=== PATIENT | female | born 1985 | race Caucasian/White ===

== ENCOUNTER 2016-08-26 20:34 | Observation (INO) | payer BC ==
[~2016-08-26] VITALS: Ht 165.1 cm; Wt 86.5 kg
[2016-08-26 21:23] LABS: MCV 88.1 FL (83-99); MEAN PLAT.VOLUME 9.4 uM^3 (9.5-12.4); PLATELET COUNT 323 K/uL (156-360); RBC DIS.WIDTH-CV 13.1 % (11.8-14.6); RBC DIS.WIDTH-SD 41.5 % (39-53); RED BLOOD COUNT 4.54 M/uL (3.80-5.20)
[2016-08-26 21:31] LABS: CHLORIDE 109 mEq/L (99-109); POTASSIUM 3.1 mEq/L (3.7-5.4); SODIUM 139 mEq/L (136-147)
[2016-08-26 21:33] LABS: GLUCOSE 166 mg/dL (70-99)
[2016-08-26 21:35] LABS: D-DIMER ELISA 0.33 mg/L FEU (< 0.57)
[2016-08-26 21:35] LABS: ANION GAP 13 MEQ/L (2-14)
[2016-08-26 21:37] LABS: GFR ESTIMATE (CALCULATED) > 59 mL/min/
[2016-08-26 21:38] LABS: UREA NITROGEN (BUN) 10 mg/dL (9-23)
[2016-08-26 21:43] LABS: TROP-I INTERPRETATION NEGATIVE; TROPONIN-I < 0.01 ng/mL (0.0-0.30)
[2016-08-26 21:43] LABS: TOTAL BILIRUBIN 0.3 mg/dL (0.0-1.0)
[2016-08-26 21:44] LABS: ALKALINE PHOSPHATASE 87 IU/L (3-129)
[2016-08-26 21:45] LABS: QUANTITATIVE HCG < 4.0 MIU/ML
[2016-08-26 21:47] LABS: DIRECT BILIRUBIN 0.1 mg/dL (0.0-0.3)
[2016-08-26] MEDS ORDERED: AMPHETAMINE SAL20 MG PO (21:53)
[2016-08-26] MEDS ORDERED: METHIMAZOLE10 MG PO (21:53)
[2016-08-26] MEDS ORDERED: B-122500 MC1 SL (21:53)
[2016-08-26] MEDS ORDERED: VITAMIN D22000 UNIT PO (21:54)
[2016-08-27 02:35] VITALS: BP 112/58
[2016-08-27 04:50] LABS: TROP-I INTERPRETATION NEGATIVE; TROPONIN-I < 0.01 ng/mL (0.0-0.30)
[2016-08-27 08:16] VITALS: BP 99/62
[2016-08-27 08:44] LABS: ADD MIUA? NO; BILIRUBIN NEGATIVE; BLOOD NEGATIVE; COLOR YELLOW ((YELLOW)); GLUCOSE (STRIP) NEGATIVE; KETONES NEGATIVE; LEUKOCYTES NEGATIVE; NITRITE NEGATIVE; PROTEIN (STRIP) NEGATIVE; SPECIFIC GRAVITY 1.013 (1.000-1.030); UROBILINOGEN 0.2 MG/DL (0.2-1.0)
[2016-08-27 09:36] LABS: BARBITUATES QUANT VALUE 0 NG/ML; BENZODIAZEPINES QUANT VALUE 0 NG/ML; BENZODIAZEPINES, URINE SCREEN Negative (200 ng/mL); MARIJUANA QUANT VALUE 0 NG/ML; OPIATES QUANTITATIVE VALUE 0 NG/ML; PHENCYCLIDINE QUANT VALUE 0 NG/ML
[2016-08-27 10:09] VITALS: BP 111/63
[2016-08-27 10:34] LABS: TROP-I INTERPRETATION NEGATIVE; TROPONIN-I < 0.01 ng/mL (0.0-0.30)
[2016-08-27 12:28] VITALS: BP 113/62
[2016-08-27] MEDS ORDERED: INDERAL40 MG PO (13:45)
[2016-08-27 14:40] LABS: Estimated Average Glucose 103 mg/dL (70-123); HEMOGLOBIN A1c (GLYCOHEMOGLOB) 5.2 % HGB (Below 5.7)
== END 2016-08-27 14:30 | disposition home or self-care (01) ==
LOC: EME 20:34 → EDOF 08-27 01:05 → 5WEST 08-27 02:20
PROVIDERS: Emergency Medicine; Hospitalist; Nurse Practitioner Family
DX: R00.2 Palpitations (principal); E05.90 Thyrotoxicosis, unspecified without thyrotoxic crisis or storm; R06.02 Shortness of breath; R42 Dizziness and giddiness; F90.1 Attention-deficit hyperactivity disorder, predominantly hyperactive type; R53.83 Other fatigue; R07.89 Other chest pain; R06.00 Dyspnea, unspecified
CPT/HCPCS: 71020; 80048; 80076; 81003; 82533 91; 83036; 84439; 84443; 84481; 84484; 84702; 85027; 85379; 87502; 93005; 99281; 99285; G0378; J1800; J7030